=== PATIENT | female | born 1960 | race Caucasian/White ===

== ENCOUNTER 2018-09-21 15:53 | Emergency (ER) | payer BC, OTHER ==
--- NOTE | 2018-09-21 18:23 | EDPHY ---
H & P Stated Complaint: dizziness Time Seen by Provider: 09/21/18 18:07 HPI/ROS: CHIEF COMPLAINT: Dizziness HISTORY OF PRESENT ILLNESS: 57-year-old female presents with dizziness. Onset of lightheadedness 2 days ago. Associated with fatigue and generalized weakness. The dizziness occurs when she stands up quickly. Just doesn't feel like herself. She went [place] at [place] 3 days ago and felt okay. No chest pain or shortness of breath. No recent illness. 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 No black stools/bloody stools. REVIEW OF SYSTEMS: complete 10 point ROS reviewed and is negative except for the noted elements in the HPI Source: Patient - Personal History Current Tetanus/Diphtheria Vaccine: Yes Current Tetanus Diphtheria and Acellular Pertussis (TDAP): Yes - Medical/Surgical History Hx Asthma: No Hx Chronic Respiratory Disease: No Hx Diabetes: No Hx Cardiac Disease: No Hx Renal Disease: No Hx Cirrhosis: No Hx Alcoholism: No Hx HIV/AIDS: No Hx Splenectomy or Spleen Trauma: No Other PMH: myocardial bridge, R inguinal hernia repair, breast reduction - Social History Smoking Status: Never smoked Alcohol Use: Sober Drug Use: None Additional Social History: - Physical Exam Exam: General Appearance: Alert, pleasant and smiling Eyes: Pupils equal and round, no conjunctival pallor or injection, no nystagmus ENT, Mouth: Mucous membranes moist Neck: Normal inspection Respiratory: Lungs are clear to auscultation Cardiovascular: Regular rate and rhythm, no murmur Gastrointestinal: Abdomen is soft and nontender Neurological: A&O, nonfocal, normal gait Skin: Warm and dry, no rash Extremities: Nontender, no pedal edema Psychiatric: Mood and affect normal Constitutional: Initial Vital Signs Temperature (C) 36.7 C 09/21/18 16:17 Heart Rate 96 09/21/18 16:17 Respiratory Rate 16 09/21/18 16:17 Blood Pressure 165/103 H 09/21/18 16:17 O2 Sat (%) 95 09/21/18 16:17 O2 Delivery Mode Room Air Allergies/Adverse Reactions: No Known Allergies Allergy (Unverified 09/21/18 16:17) Home Medications: Medication Instructions Recorded NK [No Known Home Meds] 09/21/18 Medical Decision Making - Diagnostics EKG Interpretation: terpreted by me reveals normal sinus rhythm, rate 75, LVH, borderline prolonged QT interval. Interpretation: Abnormal EKG ED Course/Re-evaluation: This pt presents with lightheadedness and feeling off. Initial VS reveal mildly elevated BP; physical exam is unremarkable. EKG reveals LVH, without ischemic changes or dysrhythmia. IV NS 1 liter given for possible dehydration. Labs unremarkable, including TSH. BP gradually subsided in ED. Unclear etiology of dizziness. Elevated BP noted, pt aware, will recheck. Encouraged pt to f/u with PCP. Differential Diagnosis: Dizziness including but not limited to peripheral and central causes of vertigo , orthostatic causes including dehydration, and blood loss. - Data Points Laboratory Results: Laboratory Results 09/21/18 18:11 09/21/18 18:15 Medications Given: Discontinued Medications Sodium Chloride (Ns) 1,000 mls @ 0 mls/hr IV ONCE ONE PRN Reason: Wide Open Stop: 09/21/18 18:26 Last Admin: 09/21/18 18:26 Dose: 1,000 mls Departure - Departure Disposition: Home, Routine, Self-Care Clinical Impression: Lightheadedness Condition: Good Instructions: Lightheadedness (ED) Additional Instructions: Have your blood pressure rechecked by your PCP. Referrals: Elva Espinosa MD [Medical Doctor] - As per Instructions
[2018-09-21] MEDS ORDERED: NS 1,000 ML IV ONE (18:25)
[2018-09-21 18:33] LABS: PLATELET COUNT 233 10^3/uL (150-400)
[2018-09-21 19:51] VITALS: BP 120/48
--- NOTE | 2018-09-24 15:37 | CPEKG ---
Test Reason : OPEN Blood Pressure : / mmHG Vent. Rate : 075 BPM Atrial Rate : 075 BPM P-R Int : 131 ms QRS Dur : 087 ms QT Int : 436 ms P-R-T Axes : 067 059 043 degrees QTc Int : 487 ms Sinus rhythm Probable LVH with secondary repol abnrm Borderline prolonged QT interval Confirmed by Teodora Ochoa ([id number]) on 09/24/2018 3:36:14 PM Referred By: Confirmed By:Teodora Ochoa
== END 2018-09-21 19:51 | disposition home or self-care (01) ==
DX: R42 Dizziness and giddiness (principal)